=== PATIENT | male | born 1955 | race Two or more races ===

== ENCOUNTER 2018-10-27 09:53 | Outpatient (CLI) | payer MEDICARE, MEDICAID ==
[~2018-10-27 09:53] MED LIST: MAALOX ADVANCE770 ML PO; ZOFRAN ODT4 MG ORAL
--- NOTE | 2018-10-27 14:16 | Diagnostic Imaging Report ---
Indication: Abnormal thyroid function tests Technique: Grayscale and duplex images of the thyroid Comparison: none Findings: Right thyroid lobe measures 4.2 cm length x 1.4 cm AP. Left thyroid lobe measures 3.4 cm length x 1.2 cm AP. Both thyroid lobes demonstrate normal echogenicity.. No focal abnormality. Impression: negative
== END 2018-10-27 11:53 | disposition home or self-care (01) ==
LOC: SUR 09:53 → EDSTATUS 10:00 → RAD 11:53
DX: R94.6 Abnormal results of thyroid function studies (principal)
CPT/HCPCS: 76536